=== PATIENT | female | born 1980 | race Two or more races ===

== ENCOUNTER 2023-04-14 08:48 | Emergency (ER) | payer OTHER ==
[~2023-04-14] VITALS: Ht 162.6 cm; Wt 97.1 kg
[2023-04-14] MEDS ORDERED: LIPITOR20 MG PO (09:00)
[2023-04-14] MEDS ORDERED: ZYRTEC10 M3 (09:00)
== END 2023-04-14 12:29 | disposition home or self-care (01) ==
LOC: ER 08:49
DX: M54.50 Low back pain, unspecified (principal); M79.601 Pain in right arm; L50.9 Urticaria, unspecified